=== PATIENT | male | born 1940 | race Caucasian/White ===

== ENCOUNTER 2017-01-23 06:10 | Emergency (ER) | payer MEDICARE ==
[~2017-01-23] VITALS: Ht 172.7 cm; Wt 70.3 kg
[2017-01-23] MEDS ORDERED: ATORVASTATIN CALCIUM 40 MG TAB (06:35)
[2017-01-23] MEDS ORDERED: TEMA30CA (06:35)
[2017-01-23] MEDS ORDERED: LIDOCAINE HCL 1% 20 ML VIAL TP ONE (06:45)
--- NOTE | 2017-01-23 06:51 | NUR ---
Patient discharged to home in stable conditon. Written and verbal after care instructions given. Patient verbalizes understanding of instructions.
== END 2017-01-23 06:52 | disposition home or self-care (01) ==
LOC: ER 06:12
DX: S63.285A Dislocation of proximal interphalangeal joint of left ring finger, initial encounter (principal); E78.00 Pure hypercholesterolemia, unspecified; Z88.1 Allergy status to other antibiotic agents; W22.8XXA Striking against or struck by other objects, initial encounter; Y93.89 Activity, other specified; Y99.8 Other external cause status; Y92.89 Other specified places as the place of occurrence of the external cause
CPT/HCPCS: 26770; 73130; 99284; A4663; J3490